=== PATIENT | female | born 1965 | race Caucasian/White ===

== ENCOUNTER 2017-12-13 04:20 | Emergency (ER) | payer OTHER ==
[2017-12-13] MEDS: NS 500 ML IV ×2 (05:18)
[2017-12-13] MEDS: KETOROLAC 30 MG/ML VIAL (J1885) IV (05:30)
[2017-12-13] MEDS: MORPHINE 4 MG/ML 1ML SYRINGE IV (05:31)
[2017-12-13 05:41] LABS: BASO % 0.6 % (0.0-1.0); EOS # 0.2 10^3/uL (0.0-0.50); EOS % 2.9 % (0.0-3.0); HEMATOCRIT 37.8 % (36.0-47.0); HEMOGLOBIN 12.2 g/dl (12.0-16.0); IMMATURE GRANULOCYTE % 0.6 % (0-0); LYMPH # 1.3 10^3/uL (1.5-4.5); LYMPH % 17.8 % (24.0-44.0); MEAN CORPUSCULAR HEMOGLOBIN 26.8 pg (27.0-33.0); MEAN CORPUSCULAR HGB CONC 32.3 g/dl (32.0-36.5); MEAN CORPUSCULAR VOLUME 82.9 fl (80.0-96.0); MONO # 0.6 10^3/uL (0.0-0.8); MONO % 8.4 % (0.0-5.0); NEUTROPHILS # 5.1 10^3/uL (1.8-7.7); NEUTROPHILS % 69.7 % (36.0-66.0); PLATELET COUNT, AUTOMATED 203 10^3/uL (150-450); RED BLOOD COUNT 4.56 10^6/uL (4.00-5.40); WHITE BLOOD COUNT 7.3 10^3/uL (4.0-10.0)
[2017-12-13 06:02] LABS: ALBUMIN/GLOBULIN RATIO 1.33 (1.00-1.93); ALKALINE PHOSPHATASE 76 U/L (45-117); ALT/SGPT 28 U/L (12-78); AMYLASE 103 U/L (25-115); ANION GAP 8 MEQ/L (8-16); AST/SGOT 14 U/L (7-37); BILIRUBIN,DIRECT < 0.1 MG/DL (0.0-0.2); BILIRUBIN,TOTAL 0.2 MG/DL (0.2-1.0); BLOOD UREA NITROGEN 24 MG/DL (7-18); CALCIUM LEVEL 9.2 MG/DL (8.5-10.1); CARBON DIOXIDE LEVEL 27 MEQ/L (21-32); CHLORIDE LEVEL 106 MEQ/L (98-107); CREATININE FOR GFR 0.92 MG/DL (0.55-1.30); GLOMERULAR FILTRATION RATE > 60.0 (>51); GLUCOSE, FASTING 178 MG/DL (70-100); LIPASE 759 U/L (73-393); POTASSIUM SERUM 4.3 MEQ/L (3.5-5.1); SODIUM LEVEL 141 MEQ/L (136-145)
[2017-12-13 06:03] LABS: APPEARANCE, URINE CLEAR (CLEAR); BACTERIA, URINE AUTO 1+ (NEGATIVE); BILIRUBIN, URINE AUTO NEGATIVE (NEGATIVE); BLOOD, URINE BLOOD 1+ (NEGATIVE); COLOR, URINE YELLOW (YELLOW); GLUCOSE, URINE (UA) AUTO NEGATIVE (NEGATIVE); KETONE, URINE AUTO NEGATIVE (NEGATIVE); LEUKOCYTE ESTERASE, URINE AUTO NEGATIVE (NEGATIVE); MUCUS, URINE SMALL (NEGATIVE); NITRITE, URINE AUTO NEGATIVE (NEGATIVE); PROTEIN, URINE AUTO NEGATIVE (NEGATIVE); RBC, URINE AUTO 37 /HPF (0-3); SPECIFIC GRAVITY URINE AUTO 1.012 (1.002-1.035); SQUAMOUS EPITHELIAL CELL UR AU 1 /HPF (0-6); UROBILINOGEN, URINE AUTO 0.2 mg/dL (0.0-2.0); WBC, URINE AUTO 3 /HPF (0-3)
[2017-12-13] MEDS: CIPROFLOXACIN 400 MG in APPROPRIATE DILUENT 1 EA IV (06:35)
[2017-12-13] MEDS: NORCO 5/325MG TABLET (BULK FOR ED) PO (06:51)
== END 2017-12-13 08:13 | disposition home or self-care (01) ==
LOC: M ED 04:20
DX: N20.1 Calculus of ureter (principal); E11.9 Type 2 diabetes mellitus without complications; I10 Essential (primary) hypertension; Z87.442 Personal history of urinary calculi; Z98.84 Bariatric surgery status; Z79.899 Other long term (current) drug therapy; Z79.84 Long term (current) use of oral hypoglycemic drugs
CPT/HCPCS: J0744

== ENCOUNTER 2018-03-08 21:32 | Emergency (ER) | payer OTHER ==
[2018-03-09] MEDS: NS 1,000 ML IV (01:30)
[2018-03-09] MEDS: KETOROLAC 30 MG/ML VIAL (J1885) IV (01:30)
[2018-03-09 01:37] LABS: APPEARANCE, URINE HAZY (CLEAR); BACTERIA, URINE AUTO 2+ (NEGATIVE); BILIRUBIN, URINE AUTO NEGATIVE (NEGATIVE); BLOOD, URINE BLOOD 3+ (NEGATIVE); COLOR, URINE YELLOW (YELLOW); GLUCOSE, URINE (UA) AUTO NEGATIVE (NEGATIVE); KETONE, URINE AUTO NEGATIVE (NEGATIVE); LEUKOCYTE ESTERASE, URINE AUTO NEGATIVE (NEGATIVE); MUCUS, URINE SMALL (NEGATIVE); NITRITE, URINE AUTO NEGATIVE (NEGATIVE); PROTEIN, URINE AUTO NEGATIVE (NEGATIVE); RBC, URINE AUTO 159 /HPF (0-3); SQUAMOUS EPITHELIAL CELL UR AU 1 /HPF (0-6); UROBILINOGEN, URINE AUTO 0.2 mg/dL (0.0-2.0); WBC, URINE AUTO 2 /HPF (0-3); YEAST LIKE CELL URINE AUTO MODERATE
[2018-03-09 01:47] LABS: BASO % 0.5 % (0.0-1.0); EOS # 0.2 10^3/uL (0.0-0.50); EOS % 1.9 % (0.0-3.0); HEMATOCRIT 35.5 % (36.0-47.0); HEMOGLOBIN 11.8 g/dl (12.0-15.5); IMMATURE GRANULOCYTE % 0.8 % (0-3.0); LYMPH # 1.2 10^3/uL (1.5-4.5); LYMPH % 13.8 % (24.0-44.0); MEAN CORPUSCULAR HEMOGLOBIN 28.5 pg (27.0-33.0); MEAN CORPUSCULAR HGB CONC 33.2 g/dl (32.0-36.5); MEAN CORPUSCULAR VOLUME 85.7 fl (80.0-96.0); MONO # 0.6 10^3/uL (0.0-0.8); NEUTROPHILS # 6.6 10^3/uL (1.8-7.7); PLATELET COUNT, AUTOMATED 168 10^3/uL (150-450); RED BLOOD COUNT 4.14 10^6/uL (4.00-5.40); RED CELL DISTRIBUTION WIDTH 13.3 % (11.5-14.5); WHITE BLOOD COUNT 8.7 10^3/uL (4.0-10.0)
[2018-03-09 02:10] LABS: ALBUMIN 3.5 GM/DL (3.2-5.2); ALBUMIN/GLOBULIN RATIO 1.13 (1.00-1.93); ALKALINE PHOSPHATASE 90 U/L (45-117); ALT/SGPT 29 U/L (12-78); ANION GAP 8 MEQ/L (8-16); AST/SGOT 15 U/L (7-37); BILIRUBIN,DIRECT < 0.1 MG/DL (0.0-0.2); BILIRUBIN,TOTAL 0.3 MG/DL (0.2-1.0); BLOOD UREA NITROGEN 14 MG/DL (7-18); CALCIUM LEVEL 8.2 MG/DL (8.5-10.1); CARBON DIOXIDE LEVEL 26 MEQ/L (21-32); CHLORIDE LEVEL 108 MEQ/L (98-107); CREATININE FOR GFR 0.97 MG/DL (0.55-1.30); GLOMERULAR FILTRATION RATE > 60.0 (>51); GLUCOSE, FASTING 189 MG/DL (70-100); LIPASE 455 U/L (73-393); POTASSIUM SERUM 3.9 MEQ/L (3.5-5.1); SODIUM LEVEL 142 MEQ/L (136-145); TOTAL PROTEIN 6.6 GM/DL (6.4-8.2)
[2018-03-09] MEDS: FLUCONAZOLE 100 MG TAB PO (03:43)
== END 2018-03-09 04:08 | disposition home or self-care (01) ==
LOC: M ED 21:32
DX: N20.1 Calculus of ureter (principal); B37.9 Candidiasis, unspecified; E11.9 Type 2 diabetes mellitus without complications; I10 Essential (primary) hypertension; R79.89 Other specified abnormal findings of blood chemistry; Z87.442 Personal history of urinary calculi; Z79.84 Long term (current) use of oral hypoglycemic drugs; Z79.899 Other long term (current) drug therapy
CPT/HCPCS: J1885

== ENCOUNTER → 2018-03-21 | Outpatient (CLI) | payer OTHER | LOC: M LAB 12:19 | DX: N20.0 Calculus of kidney (principal); N20.1 Calculus of ureter | CPT/HCPCS: 74018 ==

== ENCOUNTER → 2019-02-14 | Outpatient (CLI) | payer OTHER ==
[~2019-02-14] MED LIST: CIPR-249 PO; LISI-538 PO; METF10004 PO
--- NOTE | 2019-02-14 13:39 | REP ---
LEFT FOOT SERIES: Four views of the left foot are performed. There is a nondisplaced fracture of the 5th proximal phalanx. No other acute fracture or dislocation is seen. Metallic plate and screws are seen in the distal fibula. There is mild posterior and inferior calcaneal spurring. IMPRESSION: Nondisplaced fracture of the 5th proximal phalanx. Electronically Signed by Wally Waldron MD 02/14/2019 04:36 P
== END ==
LOC: M LRY 12:44
PROVIDERS: ATTEND Physician Assistant
DX: S92.515A Nondisplaced fracture of proximal phalanx of left lesser toe(s), initial encounter for closed fracture (principal); X58.XXXA Exposure to other specified factors, initial encounter; Y92.89 Other specified places as the place of occurrence of the external cause; Z96.7 Presence of other bone and tendon implants

== ENCOUNTER 2019-08-24 13:54 | Emergency (ER) | payer OTHER ==
[~2019-08-24] VITALS: Ht 160 cm; Wt 123.2 kg
[2019-08-24 15:14] LABS: BASO % 0.5 % (0.0-1.0); EOS # 0.2 10^3/uL (0.0-0.5); EOS % 2.2 % (0.0-3.0); HEMATOCRIT 40.2 % (36.0-47.0); HEMOGLOBIN 12.1 g/dl (12.0-15.5); LYMPH # 1.1 10^3/uL (1.5-5.0); LYMPH % 12.4 % (24.0-44.0); MEAN CORPUSCULAR HEMOGLOBIN 24.6 pg (27.0-33.0); MEAN CORPUSCULAR HGB CONC 30.1 g/dl (32.0-36.5); MEAN CORPUSCULAR VOLUME 81.7 fl (80.0-96.0); MONO # 0.6 10^3/uL (0.0-0.8); MONO % 6.3 % (0.0-5.0); NEUTROPHILS # 6.9 10^3/uL (1.5-8.5); NEUTROPHILS % 78.1 % (36.0-66.0); PLATELET COUNT, AUTOMATED 278 10^3/uL (150-450); RED BLOOD COUNT 4.92 10^6/uL (4.00-5.40); WHITE BLOOD COUNT 8.8 10^3/uL (4.0-10.0)
[2019-08-24] MEDS ORDERED: LASI20TA3 PO (15:14)
[2019-08-24] MEDS ORDERED: LANTINJ4 SC (15:14)
[2019-08-24] MEDS ORDERED: NS 1,000 ML IV ONE (15:15)
[2019-08-24] MEDS ORDERED: KETOROLAC 30 MG/ML VIAL (J1885) IV ONE (15:15)
[2019-08-24 15:46] LABS: ALT/SGPT 27 U/L (12-78); BILIRUBIN,DIRECT < 0.1 MG/DL (0.0-0.2); BILIRUBIN,TOTAL 0.2 MG/DL (0.2-1.0); BLOOD UREA NITROGEN 27 MG/DL (7-18); CALCIUM LEVEL 8.9 MG/DL (8.5-10.1); CARBON DIOXIDE LEVEL 23 MEQ/L (21-32); CHLORIDE LEVEL 107 MEQ/L (98-107); CREATININE FOR GFR 1.26 MG/DL (0.55-1.30); GLOMERULAR FILTRATION RATE 47.3 (>51); GLUCOSE, FASTING 170 MG/DL (70-100); LIPASE 363 U/L (73-393); POTASSIUM SERUM 4.1 MEQ/L (3.5-5.1); SODIUM LEVEL 140 MEQ/L (136-145); TOTAL PROTEIN 8.1 GM/DL (6.4-8.2)
--- NOTE | 2019-08-24 16:25 | REP ---
CT of the abdomen pelvis without IV and oral contrast for left flank pain: Comparison is 03/09/2018. There is a 11 mm calculus in the distal left ureter at the UVJ resulting left hydroureter and left hydronephrosis. This calculus may actually be a confluence of two calculi. There are two nonobstructive bowel renal calculi. There is a single tiny nonobstructive right renal calculus. There is no right hydronephrosis. The the visualized lung pillai are unremarkable. The unenhanced hepatic parenchyma is unremarkable. There are surgical clips in the gallbladder fossa. There are upper abdominal surgical pita compatible with bariatric surgery. The pancreas, spleen, adrenals, abdominal aorta, bowel and mesentery are unremarkable. Pelvis: There is an appendectomy. There is a tiny fat containing ventral midline hernia. The uterus and adnexa are unremarkable. The bladder is unremarkable. Impression: 11 mm calculus, possibly two adjacent calculi, in the distal left ureter at the junction with the bladder. Left hydroureter and hydronephrosis. There are bilateral nonobstructing renal calculi. Electronically Signed by Wally Conte MD 08/24/2019 04:16 P
[2019-08-24] MEDS ORDERED: TAMSULOSIN 0.4 MG CAP PO ONE (16:45)
[2019-08-24] MEDS ORDERED: FLOM0.4C39 PO (17:56)
[2019-08-24] MEDS ORDERED: KETO10TAB PO (17:56)
[2019-08-24] MEDS ORDERED: MACR100C43 PO (17:57)
[2019-08-24] MEDS ORDERED: ACETAMINOPHEN 325 MG TAB PO ONE (18:00)
[2019-08-24 18:16] VITALS: BP 142/72
== END 2019-08-24 18:19 | disposition home or self-care (01) ==
LOC: M ED 13:54
DX: N20.1 Calculus of ureter (principal); Z98.84 Bariatric surgery status; Z79.899 Other long term (current) drug therapy; Z79.4 Long term (current) use of insulin
CPT/HCPCS: 74176; 80048; 80076; 81001; 83690; 85025; 96361; 96374; 99284; J1885